=== PATIENT | male | born 1980 | race Caucasian/White ===

== ENCOUNTER 2021-02-20 03:08 | Inpatient (IN) | payer OTHER ==
[~2021-02-20] VITALS: Ht 177.8 cm; Wt 124.3 kg
[2021-02-20 03:33] VITALS: BP 126/63
[2021-02-20 03:33] LABS: ABSOLUTE NEUTROPHILS 10.9 thou/uL (1.4-8.2); BASOPHILS 0.9 % (0.0-2.0); EOSINOPHILS 2.5 % (0.0-3.0); HEMATOCRIT 49.2 % (42.0-52.0); HEMOGLOBIN 16.9 gm/dL (14.0-18.0); LYMPHOCYTES 15.9 % (24.0-44.0); MCH 31.8 pg (26.0-34.0); MCHC 34.3 g/dL (28.0-37.0); MCV 92.8 fL (80.0-100.0); PLATELET COUNT 304 thou/uL (150-400); POLYS 73.7 % (36.0-66.0); RDW 13.6 % (10.5-14.5); WBC 14.8 thou/uL (4.0-11.0)
[2021-02-20 03:59] LABS: ANION GAP 9 mmol/L (7-16); BUN 9 mg/dL (7-18); CALCIUM 8.8 mg/dL (8.5-10.1); CHLORIDE 104 mmol/L (98-107); CO2 25 mmol/L (21-32); CREATININE 1.1 mg/dL (0.7-1.3); GLUCOSE 125 mg/dL (74-106); POTASSIUM 3.7 mmol/L (3.5-5.1); SODIUM 138 mmol/L (136-145)
[2021-02-20] MEDS ORDERED: CHILDREN'S ASPI81 M1 PO (04:07)
[2021-02-20 04:09] LABS: ALBUMIN 3.9 g/dL (3.4-5.0); SGOT 14 U/L (15-37); SGPT 29 U/L (16-63); TOTAL BILIRUBIN 0.7 mg/dL (0.2-1.0); TOTAL PROTEIN 7.6 g/dL (6.4-8.2); TROPONIN-I <0.06 ng/mL (<0.06)
[2021-02-20 06:47] VITALS: BP 167/101
[2021-02-20 08:41] VITALS: BP 154/89
[2021-02-20 10:29] LABS: CHOLESTEROL 213 mg/dL (<200); HDL CHOLESTEROL 29 mg/dL (>40); LDL CHOLESTEROL 150 mg/dL (<100); TC:HDL 7.3 Ratio (Not establshd); TRIGLYCERIDE 171 mg/dL (<150); VLDL 34 mg/dL (<40)
[2021-02-20] MEDS ORDERED: BACTRIM DS TAB1 EAC1 PO (10:32)
[2021-02-20] MEDS ORDERED: BENICAR20 MG PO (10:32)
[2021-02-20] MEDS ORDERED: ALPRAZOLAM 0.50.5 M1 PO (10:33)
[2021-02-20 10:53] VITALS: BP 154/89
--- NOTE | 2021-02-20 12:37 | EKG ---
[address] [place] [address] ELECTROCARDIOGRAM REPORT Name: IGNACIO RAMAN Room #: 456-P [facility] IN ..#: [id number] Admission: 02/20/21 Attend Phys: Gume Hawk MD Discharge: 02/20/21 Date of : 80 Report #: [id number] [facility] Test Date: 2021-02-20 Test Time: 09:33:32 Pat Name: IGNACIO RAMAN Department: Room: [facility] Gender: M President Practicing Urologist: YULIYA : 1980 Requested By: Rikki Roberts Order Number: [id number] MD: Willian Beltran Measurements Intervals [place] Rate: 74 P: 15 [place]: 152 QRS: 55 QRSD: 117 T: 49 QT: 398 QTc: 442 Interpretive Statements Sinus rhythm Nonspecific intraventricular conduction delay No previous ECG available for comparison Electronically Signed On 02-20-2021 12:37:22 CDT by Willian Beltran [email or web address] <ELECTRONICALLY SIGNED> By: Willian Beltran MD, [facility] 02/20/21 1237 0933 2 Willian Belrtan MD, FACC /EPI
[2021-02-21 02:05] LABS: GLYCOHEMOGLOBIN (HGB A1C) 5.8 % (4.8-5.6)
--- NOTE | 2021-02-21 11:01 | HC ---
[facility] [place] [address] CONSULTATION Name: IGNACIO RAMAN Room #: 456-P [facility] IN M.R.#: [id number] Admission: 02/20/21 Attend Phys: Gume Hawk MD Discharge: 02/20/21 Date of : [birth year] Report #: [id number] THIS REPORT FOR: cc: FAM - No family physician/PCP FAM - No family physician/PCP Willian Beltran MD [facility] ~ DOC #: [id number] Willian Beltran MD [facility] DATE OF SERVICE: 02/20/2021 REASON FOR CONSULTATION: Chest pain. HISTORY OF PRESENT ILLNESS: The patient is a 40-year-old gentleman with a complicated history including multiple prior stenting procedures, although not recently. He had a heart attack in 2017 and had 4 stents placed at that time. This was at [facility]. Within the next 1-2 years, he had two additional stenting procedures. Nothing since then. His last cardiovascular evaluation was within this calendar year with an echo and chemical stress test, which he reports both were normal. This was at [facility]. Now presents with right-sided neck pain. There is a region on the right side of his neck that is exquisitely tender to palpation. He denies fevers or chills. He has had a longstanding aches and pains and chest pain that is nothing especially new. He reports throughout the day yesterday, he had a sticking kind of chest pain or pinching pain. He was more concerned by his neck discomfort and presented to the Emergency Department wondering whether he had, had a blood clot that broke something loose in his carotid artery. This was evaluated with a CT of the chest and neck, both of which were unrevealing, although there was no specific comment about the soft tissues in the neck. CTA was negative for pulmonary embolism, although coronary calcification and/or stenting was seen. He was admitted for further evaluation. He denies any pain or symptoms reminiscent to his infarct pain. He is active without limitation. ALLERGIES: HE IS ALLERGIC TO MULTIPLE MEDICINES INCLUDING AMOXICILLIN, TEGRETOL, AND PENICILLINS. PAST HISTORY: Notable for appendectomy, tonsillectomy, coronary artery disease, hypertension, dyslipidemia. SOCIAL HISTORY: Heavy smoker, but quit about 2 years ago. Over the past couple of days, he is back to smoking 2 or 3 cigarettes a day. Works as a bounce at a local bar. FAMILY HISTORY: Notable for premature coronary artery disease. REVIEW OF SYSTEMS: All systems negative except as that noted above. [address] [address] CONSULTATION Name: IGNACIO RAMAN Room #: 456-P [facility] IN ..#: [id number] Admission: 02/20/21 Attend Phys: Gume Hawk MD Discharge: 02/20/21 Date of : 80 Report #: [id number] PHYSICAL EXAMINATION: GENERAL: He is a pleasant gentleman in no distress. VITAL SIGNS: Blood pressure is 154/89, heart rate of 60 and regular. He is afebrile. 5 feet 10 inches tall, 274 pounds. HEENT: Neither xanthelasma, subcutaneous xanthomata, oral mucosa or digital cyanosis or kyphoscoliosis present. CHEST: Clear to auscultation and percussion. CARDIAC: Regular rate and rhythm with normal S1, S2. No murmurs or rubs. ABDOMEN: Soft and nontender. There is a markedly enlarged and exquisitely tender right cervical chain lymph node. EXTREMITIES: Without cyanosis, clubbing or edema. Radial pulses are 2+. NEUROLOGIC: He is alert with a nonfocal exam. LABORATORY DATA: EKG, normal sinus rhythm, normal tracing. Sodium 138, potassium 3.7, creatinine 1.1. Serial troponin levels are normal. Cholesterol 213, LDL 150. ProBNP 15. White count 14, hemoglobin 16, hematocrit 42, platelet count 304. Chest x-ray reveals no acute process in the chest. IMPRESSION: 1. Coronary artery disease, clinically stable. 2. Right neck pain. 3. Hypertension. 4. Dyslipidemia. RECOMMENDATIONS 1. Continued efforts towards aggressive risk factor modification. Smoking cessation counseling performed. 2. Resume statin therapy, prescription for rosuvastatin 20 mg daily given. Consider addition of ARB therapy for hypertension. 3. Consider antibiotic therapy for right cervical acute lymphadenitis, may be related to an infected right ear lobe with drainage into that cervical chain. 4. No evidence of ischemia or infarction. Chest pain is atypical for angina and not at all reminiscent to his prior ischemic symptoms. I have discussed these issues with the patient in detail. Thank you for asking me to participate in his care. Willian Beltran MD [facility] [address] [place] [address] CONSULTATION Name: IGNACIO RAMAN Room #: 456-[facility] IN M.R.#: [id number] Admission: 02/20/21 Attend Phys: Gume Hawk MD Discharge: 02/20/21 Date of : [birth year] Report #: [id number] <ELECTRONICALLY SIGNED> By: Willian Beltran MD, [facility] 02/21/21 1101 0937 1617 Willian Beltran MD, [facility] /nt
--- NOTE | 2021-02-21 11:31 | EKG ---
[address] [address] ELECTROCARDIOGRAM REPORT Name: IGNACIO RAMAN Room #: 456-P [facility] IN ..#: [id number] Admission: 02/20/21 Attend Phys: Gume Hawk MD Discharge: 02/20/21 Date of : 80 Report #: [id number] [facility] ED Test Date: 2021-02-20 Test Time: 03:15:31 Pat Name: IGNACIO RAMAN Department: Room: 456 Gender: M Audit Specialist: jerman : 1980 Requested By: Gume Hawk Order Number: [id number] MD: Willian Beltran Measurements Intervals [place] Rate: 87 P: 35 [place]: 149 QRS: 48 QRSD: 105 T: 50 QT: 355 QTc: 427 Interpretive Statements Sinus rhythm Atrial premature complexes No previous ECG available for comparison Electronically Signed On 02-21-2021 11:31:16 CDT by Willian Beltran [email or web address] <ELECTRONICALLY SIGNED> By: Willian Beltran MD, [facility] 02/21/21 1131 0315 0315 Willian Beltran MD, FACC /EPI
== END 2021-02-20 11:48 | disposition left against medical advice (07) | DRG 313 ==
LOC: ER 03:08 → EROBS 06:09 → 4W 07:32
PROVIDERS: Emergency Medicine; Hospitalist; ADMIT Hospitalist; ATTEND Hospitalist
DX: R07.9 Chest pain, unspecified (principal); I25.10 Atherosclerotic heart disease of native coronary artery without angina pectoris; I10 Essential (primary) hypertension; F41.9 Anxiety disorder, unspecified; E78.5 Hyperlipidemia, unspecified; F43.10 Post-traumatic stress disorder, unspecified; G47.00 Insomnia, unspecified; E66.9 Obesity, unspecified; I88.8 Other nonspecific lymphadenitis; Z53.21 Procedure and treatment not carried out due to patient leaving prior to being seen by health care provider; Z90.49 Acquired absence of other specified parts of digestive tract; Z79.82 Long term (current) use of aspirin; Z88.1 Allergy status to other antibiotic agents; Z88.0 Allergy status to penicillin; Z87.891 Personal history of nicotine dependence; Z88.3 Allergy status to other anti-infective agents; Z88.8 Allergy status to other drugs, medicaments and biological substances; Z95.5 Presence of coronary angioplasty implant and graft; Z91.19 Patient's noncompliance with other medical treatment and regimen; Z68.39 Body mass index [BMI] 39.0-39.9, adult
CPT/HCPCS: 10045

== ENCOUNTER 2021-03-24 18:05 | Emergency (ER) | payer OTHER ==
[~2021-03-24] VITALS: Ht 177.8 cm; Wt 122.5 kg
[~2021-03-24 18:05] MED LIST: ALPRAZOLAM 0.50.5 M1 PO; BACTRIM DS TAB1 EAC1 PO; BENICAR20 MG PO; CHILDREN'S ASPI81 M1 PO
[2021-03-24 18:28] LABS: ABSOLUTE NEUTROPHILS 7.7 thou/uL (1.4-8.2); BASOPHILS 0.7 % (0.0-2.0); EOSINOPHILS 4.2 % (0.0-3.0); HEMATOCRIT 47.6 % (42.0-52.0); LYMPHOCYTES 15.5 % (24.0-44.0); MCH 32.8 pg (26.0-34.0); MCHC 35.7 g/dL (28.0-37.0); MCV 91.8 fL (80.0-100.0); MONOCYTES 7.8 % (1.0-8.0); PLATELET COUNT 271 thou/uL (150-400); POLYS 71.8 % (36.0-66.0); RBC 5.19 mil/uL (4.50-6.00); RDW 13.6 % (10.5-14.5); WBC 10.7 thou/uL (4.0-11.0)
[2021-03-24 18:37] LABS: ANION GAP 8 mmol/L (7-16); BUN 9 mg/dL (7-18); CALCIUM 8.3 mg/dL (8.5-10.1); CHLORIDE 105 mmol/L (98-107); CO2 26 mmol/L (21-32); CREATININE 1.1 mg/dL (0.7-1.3); GLUCOSE 191 mg/dL (74-106); POTASSIUM 3.7 mmol/L (3.5-5.1); SODIUM 139 mmol/L (136-145)
[2021-03-24 18:47] LABS: ALBUMIN 3.5 g/dL (3.4-5.0); SGOT 16 U/L (15-37); SGPT 28 U/L (16-63); TOTAL BILIRUBIN 0.6 mg/dL (0.2-1.0); TROPONIN-I <0.06 ng/mL (<0.06)
[2021-03-24] MEDS ORDERED: ZANAFLEX4 MG PO (20:39)
[2021-03-24] MEDS ORDERED: ULTRAM 50MG TAB50 MG PO (20:39)
[2021-03-24 20:46] VITALS: BP 129/73
--- NOTE | 2021-03-25 07:25 | EKG ---
[place] [address] [facility] [place] [address] ELECTROCARDIOGRAM REPORT Name: IGNACIO RAMAN [id number] Admission: 03/24/21 Attend Phys: Discharge: 03/24/21 Date of : [birth year] Report #: [id number] [facility] ED Test Date: 2021-03-24 Test Time: 18:08:27 Pat Name: IGNACIO RAMAN Department: Room: Gender: Comber Setter: : 1980 Requested By: David Rangel Order Number: [id number] MD: Parrish White Measurements Intervals [place] Rate: 89 P: 59 [place]: 160 QRS: 78 QRSD: 105 T: 52 QT: 350 QTc: 426 Interpretive Statements Sinus rhythm Compared to ECG 02/20/2021 09:33:32 Intraventricular conduction delay no longer present Electronically Signed On 03-25-2021 7:25:40 CDT by Parrish White [email or web address] <ELECTRONICALLY SIGNED> By: Parrish White MD, [facility] 03/25/21 0725 1808 1808 Parrish White MD, FACC /EPI
== END 2021-03-24 20:46 | disposition home or self-care (01) ==
LOC: ER 18:05
PROVIDERS: Emergency Medicine
DX: R07.89 Other chest pain (principal); R51.9 Headache, unspecified; H92.02 Otalgia, left ear; F41.9 Anxiety disorder, unspecified; Z79.82 Long term (current) use of aspirin; Z79.899 Other long term (current) drug therapy; Z88.0 Allergy status to penicillin

== ENCOUNTER 2021-04-15 23:44 | Emergency (ER) | payer OTHER ==
[~2021-04-15] VITALS: Ht 177.8 cm; Wt 121.6 kg
[~2021-04-15 23:44] MED LIST changes: +ULTRAM 50MG TAB50 MG PO; +ZANAFLEX4 MG PO
[2021-04-16 00:22] LABS: ABSOLUTE NEUTROPHILS 9.6 thou/uL (1.4-8.2); BASOPHILS 0.7 % (0.0-2.0); EOSINOPHILS 3.6 % (0.0-3.0); HEMATOCRIT 48.2 % (42.0-52.0); HEMOGLOBIN 16.7 gm/dL (14.0-18.0); LYMPHOCYTES 19.7 % (24.0-44.0); MCH 31.7 pg (26.0-34.0); MCHC 34.6 g/dL (28.0-37.0); MCV 91.7 fL (80.0-100.0); PLATELET COUNT 294 thou/uL (150-400); RBC 5.26 mil/uL (4.50-6.00); RDW 13.4 % (10.5-14.5); WBC 14.3 thou/uL (4.0-11.0)
[2021-04-16 00:37] LABS: ANION GAP 9 mmol/L (7-16); BUN 9 mg/dL (7-18); CALCIUM 8.3 mg/dL (8.5-10.1); CHLORIDE 103 mmol/L (98-107); CO2 28 mmol/L (21-32); CREATININE 1.2 mg/dL (0.7-1.3); GLUCOSE 129 mg/dL (74-106); POTASSIUM 3.3 mmol/L (3.5-5.1); SODIUM 140 mmol/L (136-145)
[2021-04-16 00:46] LABS: ALBUMIN 3.6 g/dL (3.4-5.0); LIPASE 178 U/L (73-393); SGOT 13 U/L (15-37); SGPT 26 U/L (16-63); TOTAL BILIRUBIN 0.5 mg/dL (0.2-1.0); TROPONIN-I <0.06 ng/mL (<0.06)
[2021-04-16 01:03] VITALS: BP 111/68
--- NOTE | 2021-04-16 07:18 | EKG ---
[facility] [address] [place] [address] ELECTROCARDIOGRAM REPORT Name: IGNACIO RAMAN [id number] Admission: 04/15/21 Attend Phys: Discharge: Date of : [birth year] Report #: [id number] [facility] ED Test Date: 2021-04-15 Test Time: 23:47:55 Pat Name: IGNACIO RAMAN Department: Room: Gender: M Hasher Operator: JUDY : 1980 Requested By: Rikki Roberts Order Number: [id number] MD: Parrish White Measurements Intervals [place] Rate: 98 P: 50 [place]: 136 QRS: 64 QRSD: 114 T: 56 QT: 352 QTc: 450 Interpretive Statements Sinus rhythm Atrial premature complex Compared to ECG 03/24/2021 18:08:27 Atrial premature complex(es) now present Incomplete right bundle-branch block now present Electronically Signed On 04-16-2021 7:18:38 CDT by Parrish White [email or web address] <ELECTRONICALLY SIGNED> By: Parrish White MD, [facility] 04/16/21717 2347 2347 Parrish White MD, FACC /EPI
== END 2021-04-16 00:56 | disposition left against medical advice (07) ==
LOC: ER 23:44
PROVIDERS: Emergency Medicine
DX: R07.89 Other chest pain (principal); F41.9 Anxiety disorder, unspecified; Z79.82 Long term (current) use of aspirin; Z90.49 Acquired absence of other specified parts of digestive tract; Z88.1 Allergy status to other antibiotic agents; Z88.8 Allergy status to other drugs, medicaments and biological substances; Z88.0 Allergy status to penicillin

== ENCOUNTER 2021-04-21 00:02 | Emergency (ER) | payer OTHER ==
[~2021-04-21] VITALS: Ht 177.8 cm; Wt 122.0 kg
[2021-04-21 00:04] VITALS: BP 142/96
[2021-04-21] MEDS ORDERED: MOBIC15 MG PO (01:24)
== END 2021-04-21 01:33 | disposition home or self-care (01) ==
LOC: ER 00:02
DX: S86.812A Strain of other muscle(s) and tendon(s) at lower leg level, left leg, initial encounter (principal); F41.9 Anxiety disorder, unspecified; Z79.82 Long term (current) use of aspirin; Z88.1 Allergy status to other antibiotic agents; Z88.0 Allergy status to penicillin; Z88.8 Allergy status to other drugs, medicaments and biological substances; Y04.2XXA Assault by strike against or bumped into by another person, initial encounter; Y93.89 Activity, other specified; Y92.89 Other specified places as the place of occurrence of the external cause; Y99.8 Other external cause status